=== PATIENT | male | born 1965 | race Caucasian/White ===

== ENCOUNTER → 2021-11-08 10:46 | Outpatient (CLI) | payer OTHER, SELFPAY ==
--- NOTE | 2021-11-08 | DI.RAD.S_ITS ---
PROCEDURE: XR SHOULDER LT MIN 2V INDICATIONS: LEFT SHOULDER PAIN TECHNIQUE: 4 views of the shoulder were acquired. COMPARISON: None. FINDINGS: Bones: No fractures or dislocations. No suspicious bony lesions. Visualized ribs appear intact. Mild degenerative changes of the left acromioclavicular joint. Soft tissues: No suspicious soft tissue calcifications. IMPRESSION: Left shoulder without acute fracture or dislocation. Mild left acromioclavicular osteoarthrosis. Dictated by: Giorgio Ortega M.D. on 11/08/2021 at 12:03 Approved by: Giorgio Ortega M.D. on 11/08/2021 at 12:04
== END ==
PROVIDERS: Referring Provider Family Medicine; Visit Provider Family Medicine
DX: M25.512 Pain in left shoulder (principal); M19.011 Primary osteoarthritis, right shoulder
CPT/HCPCS: 73030